=== PATIENT | female | born 1990 | race American Indian/Alaskan Native ===

== ENCOUNTER 2019-05-01 06:50 | Emergency (ER) | payer SELFPAY ==
[2019-05-01 07:04] VITALS: BP 131/89
[2019-05-01 07:14] LABS: Basophils # (Auto) 0.1 K/mm3 (0.0-0.1); Basophils % (Auto) 1.7 % (0.0-1.8); Eosinophils # (Auto) 0.1 K/mm3 (0.0-0.4); Eosinophils % (Auto) 1.4 % (0.0-4.3); Hematocrit 39.1 % (30.3-42.9); Hemoglobin 12.8 gm/dl (10.1-14.3); Lymphocytes # (Auto) 2.2 K/mm3 (1.2-5.4); Lymphocytes % (Auto) 35.1 % (13.4-35.0); Mean Corpuscular HGB Conc 33 % (30-34); Mean Corpuscular Volume 93 fl (79-97); Monocytes # (Auto) 0.5 K/mm3 (0.0-0.8); Monocytes % (Auto) 7.6 % (0.0-7.3); Platelet Count 245 K/mm3 (140-440); Red Blood Count 4.19 M/mm3 (3.65-5.03); Red Cell Distribution Width 16.5 % (13.2-15.2)
[2019-05-01 07:22] LABS: Bilirubin,Urine NEG (Negative); Blood,Urine NEG (Negative); Color,Urine Yellow (Yellow); Mucus,Urine 3+ /HPF; Urobilinogen,Urine < 2.0 mg/dL (<2.0)
[2019-05-01 07:24] LABS: HCG Qualitative,Urine Negative (Negative)
[2019-05-01 07:37] LABS: Alanine Aminotransferase 18 units/L (7-56); Albumin 4.3 g/dL (3.9-5); BUN/Creatinine Ratio 11; Blood Urea Nitrogen 8 mg/dL (7-17); Calcium 9.3 mg/dL (8.4-10.2); Hemolysis Index 5
--- NOTE | 2019-05-01 07:46 | Emergency Department Report ---
ED Abdominal Pain HPI - General Chief Complaint: Abdominal Pain Stated Complaint: ABDOMINAL PAIN Time Seen by Provider: 05/01/19 07:41 Source: patient Mode of arrival: Ambulatory Limitations: No Limitations - History of Present Illness Initial Comments: 28-year-old -[place] female presents to the emergency room for suprapubic abdominal pain that started yesterday. Patient does admit to mild nausea. She she is 5 para 4 last menstrual period was 04/03/2019. Patient denies any vomiting or diarrhea. Patient denies any dysuria or urinary frequency vaginal bleeding and vaginal discharge. Patient's a past medical history none currently takes no medications has no known drug allergies. She's had a . MD Complaint: abdominal pain -: Last night Location: suprapubic Radiation: none Severity scale (0 -10): 5 Quality: cramping Consistency: intermittent Improves With: nothing Worsens With: nothing Associated Symptoms: nausea. denies: vomiting, diarrhea, fever, constipation, dysuria, hematemesis, hematochezia, hematuria Treatments Prior to Arrival: other (none) - Related Data LMP Date: 04/03/19 Previous Rx's Medication Instructions Recorded Last Taken Type Nitrofurantoin Barry/M-Cryst 100 mg PO Q12HR 10 Days #20 capsule 05/01/19 Unknown Rx [Macrobid CAP] Allergies Allergy/AdvReac Type Severity Reaction Status Date / Time No Known Allergies Allergy Verified 08/25/18 12:11 ED Review of Systems ROS: Stated complaint: ABDOMINAL PAIN Other details as noted in HPI Comment: All other systems reviewed and negative ED Past Medical Hx - Past Medical History Previous Medical History?: No - Surgical History Past Surgical History?: Yes Additional Surgical History: - Social History Smoking Status: Current Every Day Smoker Substance Use Type: None - Medications Home Medications: Home Medications Medication Instructions Recorded Confirmed Last Taken Type Nitrofurantoin Barry/M-Cryst 100 mg PO Q12HR 10 Days #20 capsule 05/01/19 Unknown Rx [Macrobid CAP] ED Physical Exam - General Limitations: No Limitations General appearance: alert, in no apparent distress - Head Head exam: Present: atraumatic, normocephalic - Eye Eye exam: Present: normal appearance - ENT ENT exam: Present: mucous membranes moist - Neck Neck exam: Present: normal inspection - Respiratory Respiratory exam: Present: normal lung sounds bilaterally. Absent: respiratory distress - Cardiovascular Cardiovascular Exam: Present: regular rate, normal rhythm. Absent: systolic murmur, diastolic murmur, rubs, gallop - GI/Abdominal GI/Abdominal exam: Present: soft, tenderness (suprapubic), normal bowel sounds - Extremities Exam Extremities exam: Present: normal inspection - Back Exam Back exam: Present: normal inspection - Neurological Exam Neurological exam: Present: alert, oriented X3 - Psychiatric Psychiatric exam: Present: normal affect, normal mood - Skin Skin exam: Present: warm, dry, intact, normal color. Absent: rash ED Course Vital Signs 05/01/19 07:00 Temperature 98.1 F Pulse Rate 120 H Respiratory 18 Rate Blood Pressure 131/89 O2 Sat by Pulse 100 Oximetry ED Medical Decision Making - Lab Data Result diagrams: 05/01/19 07:04 05/01/19 07:04 - Medical Decision Making 28-year-old -[place] female presents to the emergency room for suprapubic abdominal pain that started yesterday. Patient does admit to mild nausea. She she is 5 para 4 last menstrual period was 04/03/2019. Patient denies any vomiting or diarrhea. Patient denies any dysuria or urinary frequency vaginal bleeding and vaginal discharge. Patient's a past medical history none currently takes no medications has no known drug allergies. She's had a . She should return. She have a urinary tract infection. She has elevated white counts of 24 large amounts of leukoesterase. We will treat patient with Macrobid 100 mg by mouth twice a day for 10 days. Encourage patient to take [id number] Tylenol and/or Motrin for pain control. Encourage patient to drink plenty of fluids void sodas. It was noted the patient has a elevated heart rate patient had just smoked a cigarette 10 minutes prior to being triaged. We will recheck patient's pulse 30 minutes. Critical care attestation.: If time is entered above; I have spent that time in minutes in the direct care of this critically ill patient, excluding procedure time. ED Disposition Clinical Impression: UTI (urinary tract infection) Qualifiers: Urinary tract infection type: site unspecified Hematuria presence: without hematuria Qualified Code(s): N39.0 - Urinary tract infection, site not specified Disposition: TO HOME OR SELFCARE Is pt being admited?: No Does the pt Need Aspirin: No Condition: Stable Instructions: Urinary Tract Infection in Women (ED) Additional Instructions: Complete antibiotics as prescribed. You can take [id number] Tylenol and/or Motrin for pain control. Please increase your fluid intake avoid sodas alcohol. Follow up with her primary care provider if his symptoms persist or gets worse. Prescriptions: Nitrofurantoin Barry/M-Cryst [Macrobid CAP] 100 mg PO Q12HR 10 Days #20 capsule Referrals: [facility] [Provider Group] - 3-5 Days Forms: Accompanied Note, Work/School Release Form(ED)
== END 2019-05-01 08:16 | disposition home or self-care (01) ==
LOC: ED 06:50
DX: N39.0 Urinary tract infection, site not specified (principal); F17.200 Nicotine dependence, unspecified, uncomplicated; Z79.899 Other long term (current) drug therapy
CPT/HCPCS: 36415; 80053; 81001; 81025; 85025; 87086; 99283